=== PATIENT | male | born 1995 | race Caucasian/White ===

== ENCOUNTER 2018-03-31 19:02 | Emergency (ER) | END 2018-03-31 21:32 | disposition home or self-care (01) ==

== ENCOUNTER 2018-08-16 15:12 | Emergency (ER) | END 2018-08-16 18:52 | disposition home or self-care (01) ==

== ENCOUNTER 2018-08-20 18:15 | Emergency (ER) | END 2018-08-20 19:35 | disposition home or self-care (01) ==